=== PATIENT | female | born 1940 | race Caucasian/White ===

== ENCOUNTER 2019-02-07 20:33 | Inpatient (IN) | payer OTHER ==
[~2019-02-07] VITALS: Ht 152.4 cm; Wt 81.4 kg
--- NOTE | ~2019-02-07 | HC ---
[facility] [place] [address] CONSULTATION Name: THALIA DANIELS Room #: 436-P [facility] IN M.R.#: [id number] Admission: 02/07/19 ������������������ Attend Phys: Ricardo Laureano MD Discharge: 02/11/19 ������������������ Date of : 36 Report #: [id number] THIS REPORT FOR: //name// CC: Ricardo PATEL Physician staff DATE OF SERVICE: 02/11/2019 HISTORY OF PRESENT ILLNESS: The patient is an 78-year-old female who was admitted to [facility] with episode of acute mental status change. She had a fall approximately 9 days ago, was diagnosed with urinary tract infection at an outside hospital. She had worsening mental status and warranted admission for further evaluation. She was noted to be hyponatremic with a sodium down to 125 as well as acute renal insufficiency with creatinine up to 2.3 at hypomagnesemia, had some diarrhea, and was noted to have gait ataxia. She was diagnosed with metabolic encephalopathy. CT of the head showed ventriculomegaly and along with a history of some urinary incontinence and premorbid memory issues. She is thought to likely have normal pressure hydrocephalus. Neurology has been involved and the plan is to clear her infection first, have try to improve with strength, gait balance and hopeful further improvement as far as the metabolic encephalopathy. She is then to be reevaluated in the Neurology clinic to see if there should be further consideration for intervention for likely normal pressure hydrocephalus. We are seeing her in rehabilitation medicine consultation. PAST MEDICAL HISTORY: Includes chronic kidney disease, diabetes mellitus, kidney issues, depression, UTI. MEDICATIONS: Please see the full medication listing. HABITS: No history of alcohol or tobacco abuse. ALLERGIES: SHE DOES HAVE MULTIPLE ALLERGIES, PLEASE SEE THE LIST. SOCIAL HISTORY: Lives in a house alone, single ofelia. She indicates she did use a front-wheeled walker. Family assisted with laundry, which was in the basement. There is an involved granddaughter and the plan is to live with the patient's son once the patient is further improved with her overall function. REVIEW OF SYSTEMS: No current complaints of chest pain, shortness of breath or abdominal discomfort. PHYSICAL EXAMINATION: GENERAL: She is an 78-year-old white female in no obvious distress. VITAL SIGNS: Last recorded temperature 97.6, pulse 77, respirations 20, blood [address] [address] CONSULTATION Name: THALIA DANIELS Room #: 436-P [facility] IN M.R.#: [id number] Admission: 02/07/19 ������������������ Attend Phys: Ricardo Laureano MD Discharge: 02/11/19 ������������������ Date of : 38 Report #: [id number] pressure 153/73. The patient is alert. HEAD, EYES, EARS, NOSE, AND THROAT: Appeared to be benign. She will follow basic 1-step commands, although there is a definite latency to her responses. Facies appeared to be symmetric. EXTREMITIES: She has functional range of motion of both upper and lower extremities. Strength is grade 3+ to 4-/5. DTRs are trace to 1. She is mod assist with basic transfers, sit to stand. Gait was 5 steps mod assist with a front-wheeled walker. Lower extremity dressing has been mod assist. Gait is noted to be ataxic. ASSESSMENT: An 78-year-old white female with the following problem list: 1. Metabolic encephalopathy. 2. 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 3. Functional mobility, ADLs and cognitive communication issues. 4. Hyponatremia. 5. Acute on chronic renal failure. 6. Hypomagnesemia. 7. Lactic acidosis. 8. Recent urinary tract infection. 9. Diabetes mellitus. 10. History of depression. PLAN: The patient is a candidate for an acute [address] [place] [address] inpatient rehabilitation stay. Goals to improve her functional mobility, ADLs as well as cognitive communication issues, so we can hopefully get her back into the home setting. The current plan is to treat the infection and have her be reevaluated in the Neurology clinic as an outpatient regarding likely normal pressure hydrocephalus. We will need to see how she does as far as her therapies and functional improvements. Can plan on transfer when medically cleared. Thank you for asking us to assist in this patient's care. . ��������������������������������������������� ���������������������������������������� By: ��������������������������������������������� [id number] Adam Dang MD /DARRICK
[~2019-02-07 20:33] MED LIST: AUGMENTIN 500-1 EACH PO
[2019-02-07 22:02] LABS: ABSOLUTE NEUTROPHILS 9.7 thou/uL (1.4-8.2); BASOPHILS 0.3 % (0.0-2.0); EOSINOPHILS 1.3 % (0.0-3.0); HEMATOCRIT 35.7 % (37.0-47.0); HEMOGLOBIN 11.5 gm/dL (12.0-15.0); LYMPHOCYTES 10.2 % (24.0-44.0); MCH 26.8 pg (26.0-34.0); MCHC 32.1 g/dL (28.0-37.0); MCV 83.5 fL (80.0-100.0); MONOCYTES 5.6 % (1.0-8.0); PLATELET COUNT 412 thou/uL (150-400); POLYS 82.6 % (36.0-66.0); RBC 4.28 mil/uL (4.20-5.00); RDW 25.8 % (10.5-14.5); WBC 11.8 thou/uL (4.0-11.0)
[2019-02-07 22:24] LABS: ANION GAP 14 mmol/L (7-16); BUN 27 mg/dL (7-18); CALCIUM 8.9 mg/dL (8.5-10.1); CHLORIDE 91 mmol/L (98-107); CO2 20 mmol/L (21-32); CREATININE 2.3 mg/dL (0.6-1.0); GLUCOSE 124 mg/dL (74-106); POTASSIUM 5.2 mmol/L (3.5-5.1); SODIUM 125 mmol/L (136-145)
[2019-02-07 22:32] LABS: ALBUMIN 2.7 g/dL (3.4-5.0); MAGNESIUM 1.4 mg/dL (1.8-2.4); SGOT 59 U/L (15-37); SGPT 27 U/L (30-65); TOTAL BILIRUBIN 0.3 mg/dL (<0.1-1.0); TOTAL PROTEIN 6.6 g/dL (6.4-8.2); TROPONIN-I <0.06 ng/mL (<0.06)
[2019-02-07 22:52] LABS: URINE BILIRUBIN NEGATIVE (Negative); URINE BLOOD NEGATIVE (Negative); URINE CLARITY CLEAR; URINE COLOR YELLOW; URINE GLUCOSE-RANDOM* NEGATIVE (Negative); URINE KETONES NEGATIVE (Negative); URINE LEUKOCYTES-REFLEX NEGATIVE (Negative); URINE NITRITE-REFLEX NEGATIVE (Negative); URINE PROTEIN (DIPSTICK) NEGATIVE (Negative); URINE SPECIFIC GRAVITY 1.015 (1.005-1.035); URINE UROBILINOGEN 0.2 E.U./dl (0.2-1.0)
[2019-02-07 23:33] VITALS: BP 127/53
[2019-02-07 23:34] VITALS: BP 127/53
[2019-02-08 00:05] VITALS: BP 122/62
[2019-02-08] MEDS ORDERED: JANUMET 50-5001 EACH PO (00:30)
[2019-02-08] MEDS ORDERED: LEXAPRO 10 MG T10 M1 PO (00:32)
[2019-02-08] MEDS ORDERED: XANAX 0.25 MG0.25 MG PO (00:39)
[2019-02-08] MEDS ORDERED: LISINOPRIL20 MG PO (01:03)
[2019-02-08] MEDS ORDERED: METOPROLOL SUCC50 MG PO (01:06)
[2019-02-08] MEDS ORDERED: ASPIR 8181 MG PO (01:06)
[2019-02-08] MEDS ORDERED: PROBIOTIC1 EAC1 PO (01:07)
[2019-02-08] MEDS ORDERED: PRILOSEC OTC20 MG PO (01:07)
[2019-02-08] MEDS ORDERED: LIPITOR40 MG PO (01:08)
[2019-02-08] MEDS ORDERED: LOPERAMIDE 2 MG2 M1 PO (01:15)
[2019-02-08 04:00] VITALS: BP 149/70
[2019-02-08 05:52] LABS: CALCIUM 8.5 mg/dL (8.5-10.1); CREATININE 1.6 mg/dL (0.6-1.0); POTASSIUM 4.9 mmol/L (3.5-5.1)
--- NOTE | 2019-02-08 06:30 | NUR ---
PT ARRIVED TO UNIT APPROX 0015, ADMISSION AND ASSESSMENT COMPLETED, CONSENTS SIGNED BY GRANDDAUGHTER. PT ALERT TO HERSELF AND KNEW SHE WAS IN THE HOSPITAL, FLAT AFFECT AND VERY SLOW TO ANSWER QUESTIONS. DENIES SOB, PAIN, OR NAUSEA. IV FLUIDS AND ABX INFUSING OVERNIGHT. SKIN INTACT EXCEPT EXCORIATION IN PERIAREA. IN ISOLATION FOR POSSIBLE C.DIFF; NEED STOOL SAMPLE COLLECTED. HAS BEEN SB-SR, HR 58-65 MOST OF THE NIGHT. NO OTHER CONCERNS, WILL CONTINUE TO MONITOR.
[2019-02-08 07:47] VITALS: BP 153/74
--- NOTE | 2019-02-08 08:06 | EKG ---
[address] [place] [address] ELECTROCARDIOGRAM REPORT Name: THALIA DANIELS Room #: 352-P ADM IN M.R.#: [id number] ������������������ Admission: 02/07/19 ������������������ Attend Phys: Ricardo Laureano MD Discharge: ������������������ Date of : 38 Report #: [id number] ����������������������������������������������������������������� [id number] THIS REPORT FOR: //name// [facility] ED Test Date: 2019-02-07 Test Time: 21:02:13 Pat Name: THALIA DANIELS Department: Room: [facility] Gender: F Boat Outboard Engine Mechanic: YAJAIRA : 1940 Requested By: Moreno Rhodes Order Number: [id number] MD: Bruce Santos Measurements Intervals [place] Rate: 63 P: -9 NM: 143 QRS: 2 QRSD: 97 T: 85 QT: 464 QTc: 476 Interpretive Statements Sinus rhythm Atrial premature complex Nonspecific T abnrm, anterolateral leads No previous ECG available for comparison Electronically Signed On 02-08-2019 8:06:34 CDT by Bruce Santos [email or web address] ��������������������������������������������� <ELECTRONICALLY SIGNED> ���������������������������������������� By: Bruce Santos MD ��������������������������������������������� 02/08/19 0806 01 01 Bruce Santos MD /RUTHIE
[2019-02-08 09:03] LABS: HEMATOCRIT 35.8 % (37.0-47.0); HEMOGLOBIN 11.5 gm/dL (12.0-15.0); MCH 27.3 pg (26.0-34.0); MCV 85.1 fL (80.0-100.0); PLATELET COUNT 354 thou/uL (150-400); RBC 4.21 mil/uL (4.20-5.00); RDW 25.5 % (10.5-14.5); WBC 10.5 thou/uL (4.0-11.0)
[2019-02-08 09:32] LABS: ABSOLUTE NEUTROPHILS 8.6 thou/uL (1.4-8.2)
[2019-02-08 09:33] LABS: ANISOCYTOSIS 2+; BURR CELLS 1+
[2019-02-08 12:08] VITALS: BP 115/59
--- NOTE | 2019-02-08 12:12 | NUR ---
VASCULAR ACCESS CONULTED HAD DIFFICULTY WITH LAB AND PIV'S, DISCUSSED MIDLINE WITH GRANDDAUGHTER, VERBAL CONSENT OBTAINED. ATTEMPTED BATSHEVA ML DUE TO ROATOR CUFF INJURY ON RIGHT ARM. UNABLE TO PASS GUIDEWIRE. BATSHEVA CEPHALIC TOO SMALL FOR MIDLINE BUT ABLE TO START PIV.
--- NOTE | 2019-02-08 12:16 | NUR ---
assessment: CM REVIEWED CHART AND MET WITH PATIENT AND HER GRANDDAUGHTER HOLLIS AT THE BEDSIDE. PT WAS ADMITTED WITH ELECTROLYTE DISTURBANCE/DIARRHEA/ARF/AMS. PT WAS RECENTLY IN THE HOSPITAL AND WENT TO [facility] AND WAS VERY UNHAPPY THERE. GRANDDAUGHTER REPORTS THEY WANT TO LOOK INTO GETTING HER TO ANOTHER SNF. PT WAS LIVING AT HOME PRIOR TO BEING HOSPITALIZED AND GOING TO THE SNF AND LIVED ALONE. PLANS ARE FOR PATIENT TO DISCHARGE FROM [facility] TO ANOTHER SNF AND THEN ONCE DONE WITH THAT MOVE IN WITH HER SON. CM PROVIDED PATIENT AND GRANDDAUGHTER WITH A SNF LIST AND LEFT CM CONTACT INFO ON THEIR IF THEY WOULD LIKE TO DISCUSS AND SEND OUT ANY REFERRALS. CM LEFT VM FOR PATIENTS SON LASHAUN (DPOA) AND ATTEMPTED TO LEAVE A VM FOR OTHER DPOA (EDER) BUT VM WAS FULL. CM WILL CONTINUE TO FOLLOW TO ASSIST NEEDED. CM SPOKE WITH ATTENDING AND THERE ARE NO PLANS FOR WEEKEND DISCHARGE. CM WILL CONTINUE TO FOLLOW TO ASSIST NEEDED.
--- NOTE | 2019-02-08 16:23 | NUR ---
Assumed care approx. 0700 this AM. Patient oriented to self and knows that she is in the hospital, but can't remember which one. Patient has had a couple small, loose BM's, CDIFF sample negative; IV flagyl and vanc dc'd. Patient up to chair with PT using a walker. Skin is intact but groin and buttocks extremely red and excoriated. Patient also moist between folds of kelly area; nystatin powder ordered and applied. Fall precautions in place. Patient's granddaughter Nury updated at bedside this morning. Patient slowly progressing toward plan of care at this time.
[2019-02-08 17:01] VITALS: BP 170/76
[2019-02-08 19:33] VITALS: BP 149/68
--- NOTE | 2019-02-09 05:20 | NUR ---
ASSUMED CARE AT 1900. PT DENIES PAIN, EXCEPT IN PERIAREA WHEN CLEANED UP; Z-GUARD APPLIED TO AREA. DENIES NAUSEA OR SOB. PT ABLE TO STATE NAME AND BIRTHDAY, NEW WHICH HOSPITAL SHE WAS IN AND WHY SHE WAS HERE, BUT THOUGHT IT WAS APRIL 1993; PLEASANT AND COOPERATIVE WITH CARES BUT TENDS TO HAVE A BLANK STARE AND TAKE TIME WHEN ANSWERING QUESTIONS. ASKED FOR HELP USING BATHROOM MULTIPLE TIMES, PLACED ON BEDPAN BUT WOULD NOT GO MUCH THEN WOULD BE INCONTINENT RIGHT AFTER. SLEPT MOST OF THE NIGHT. NO OTHER CONCERNS, WILL CONTINUE TO MONITOR.
[2019-02-09 05:25] LABS: HEMATOCRIT 36.3 % (37.0-47.0); HEMOGLOBIN 11.7 gm/dL (12.0-15.0); MCH 27.2 pg (26.0-34.0); MCHC 32.2 g/dL (28.0-37.0); MCV 84.3 fL (80.0-100.0); RBC 4.3 mil/uL (4.20-5.00); RDW 25.2 % (10.5-14.5); WBC 8.1 thou/uL (4.0-11.0)
[2019-02-09 05:53] LABS: MAGNESIUM 1.8 mg/dL (1.8-2.4)
[2019-02-09 05:54] VITALS: BP 172/101
[2019-02-09 05:54] LABS: POTASSIUM 3.9 mmol/L (3.5-5.1)
[2019-02-09 07:51] VITALS: BP 169/98
[2019-02-09 11:07] VITALS: BP 174/86
[2019-02-09 14:55] VITALS: BP 112/59
[2019-02-09 15:15] VITALS: BP 129/70
--- NOTE | 2019-02-09 18:13 | NUR ---
ASSUME CARE FOR PT SHIFT CHANGE. ASSESSMENTS CHARTED. MEDS GIVEN PER MAR. A&OX3, FORGETFUL. NO C/O PAIN. REQUESTS BEDPAN, BUT IS FREQUENTLY INCONTINENT. USED ZGUARD ON REDNESS ON BUTTOCKS AND CHANGED CHUCKS AND LINENS FREQUENTLY. FAMILY VISITED IN AFTERNOON. WILL CONTINUE TO MONITOR AND FOLLOW POC.
[2019-02-09 19:35] VITALS: BP 149/78
[2019-02-10 03:55] VITALS: BP 175/88
[2019-02-10 07:53] VITALS: BP 194/105
[2019-02-10 09:51] LABS: HEMATOCRIT 32.9 % (37.0-47.0); HEMOGLOBIN 10.7 gm/dL (12.0-15.0); MCH 27.4 pg (26.0-34.0); MCHC 32.4 g/dL (28.0-37.0); MCV 84.6 fL (80.0-100.0); PLATELET COUNT 369 thou/uL (150-400); RBC 3.89 mil/uL (4.20-5.00); RDW 25.4 % (10.5-14.5); WBC 7.8 thou/uL (4.0-11.0)
[2019-02-10 10:00] LABS: CALCIUM 8.5 mg/dL (8.5-10.1); CREATININE 0.8 mg/dL (0.6-1.0); POTASSIUM 3.9 mmol/L (3.5-5.1)
[2019-02-10 10:14] LABS: ABSOLUTE NEUTROPHILS 5.4 thou/uL (1.4-8.2); ANISOCYTOSIS 1+; MICROCYTES 2+; PLATELET ESTIMATE NORMAL
[2019-02-10 11:19] VITALS: BP 170/98
[2019-02-10 15:14] VITALS: BP 135/72
--- NOTE | 2019-02-10 17:15 | NUR ---
ASSUMED PATIENT CARE AT 0700. A/O X2. NO DISDRESS NOTED. DENIES PAIN. ASSISTED TURN. INCONT URINE AND BOWEL. PROGRESSING TOWAEDS POC GOALS.
[2019-02-10 19:13] VITALS: BP 148/70
[2019-02-11 04:03] VITALS: BP 159/94
--- NOTE | 2019-02-11 06:16 | NUR ---
PLACED LOW LOSS AIR PUMP ON PT BED DUE TO POSSIBLE SKIN RISK. PT IS RESTLESS MOST OF NIGHT AND CALLS OUT FOR ANYONE. UP X1 WITH WALKER TO BSC. FOLLOW POC WITH IVF AND IVPB. HOURLY ROUNDING.
[2019-02-11 07:57] VITALS: BP 153/73
--- NOTE | 2019-02-11 09:58 | NUR ---
on-going assessment: CM SPOKE WITH [facility] WHO STATES PATIENT HAS A QUALIFYING DIAGNOSIS AND THEY COULD ASSESS PT TO SEE IF SHE COULD COME TO IF FAMILY AND PT WERE INTERESTED. CM SPOKE WITH PATIENT AND HER SON LASHAUN AT THE BEDSIDE. THEY ARE INTERESTED [id number] INTO . CONSULT WAS PLACED AND CM NOTIFIED REH[facility]. IF PATIENT IS UNABLE TO GO TO THEN FAMILY IS INTERESTED IN [facility]. CM WILL CONTINUE TO FOLLOW AND AWAITING ON INPUT FROM .
[2019-02-11 10:43] VITALS: BP 157/74
[2019-02-11] MEDS ORDERED: NORVASC10 MG PO (12:01)
[2019-02-11] MEDS ORDERED: NYAMYC15 GM TOP (12:01)
--- NOTE | 2019-02-11 17:28 | NUR ---
assumed patient care at 0700. a/o x2. no disdress noted. up with assisted to bsc. dc to 5n today.
== END 2019-02-11 14:42 | DRG 682 ==
LOC: ER 20:33 → 4S 23:02 → 3W 23:02 → EROBS 23:02 → 3W 23:47 → 4S 02-08 13:55
PROVIDERS: Emergency Medicine; Nurse Practitioner Family; ADMIT Hospitalist
DX: N17.9 Acute kidney failure, unspecified (principal); G93.41 Metabolic encephalopathy; E87.1 Hypo-osmolality and hyponatremia; N39.0 Urinary tract infection, site not specified; E83.42 Hypomagnesemia; K21.9 Gastro-esophageal reflux disease without esophagitis; F03.90 Unspecified dementia, unspecified severity, without behavioral disturbance, psychotic disturbance, mood disturbance, and anxiety; R32 Unspecified urinary incontinence; N18.9 Chronic kidney disease, unspecified; R26.0 Ataxic gait; R19.7 Diarrhea, unspecified; I12.9 Hypertensive chronic kidney disease with stage 1 through stage 4 chronic kidney disease, or unspecified chronic kidney disease; E11.22 Type 2 diabetes mellitus with diabetic chronic kidney disease; F32.9 Major depressive disorder, single episode, unspecified; R29.6 Repeated falls; G93.89 Other specified disorders of brain; Z79.899 Other long term (current) drug therapy; Z88.6 Allergy status to analgesic agent; Z88.8 Allergy status to other drugs, medicaments and biological substances; Z88.0 Allergy status to penicillin; Z91.013 Allergy to seafood; Z79.82 Long term (current) use of aspirin
CPT/HCPCS: 10100; 10879

== ENCOUNTER 2019-02-11 13:21 | Inpatient (IN) | payer OTHER ==
[~2019-02-11] VITALS: Ht 154.9 cm; Wt 84.4 kg
[~2019-02-11 13:21] MED LIST changes: +ASPIR 8181 MG PO; +JANUMET 50-5001 EACH PO; +LEXAPRO 10 MG T10 M1 PO; +LIPITOR40 MG PO; +LISINOPRIL20 MG PO; +LOPERAMIDE 2 MG2 M1 PO; +METOPROLOL SUCC50 MG PO; +NORVASC10 MG PO; +NYAMYC15 GM TOP; +PRILOSEC OTC20 MG PO; +PROBIOTIC1 EAC1 PO; +XANAX 0.25 MG0.25 MG PO
[2019-02-11 14:47] VITALS: BP 146/85
--- NOTE | 2019-02-11 15:40 | NUR ---
chart review. pt new to [facility]. cm visited with yeni at bedside. intro to dcp, transition of care, home health and team meetings. pt reported " lives alone, independent before hospital, 8 stairs to basement. manage own medication in pill box. have not driven since [place]. has cane, fww and walker with seat. has tube with tube chair- not built in. have life alert that works only at house and don't wear it. no past hh. was at [facility] before coming to hospital."/yeni. will cont following as needed for dc needs.
--- NOTE | 2019-02-11 18:41 | NUR ---
PT ADMITTED TO ROOM 509 THIS AFTERNOON DX WITH TOXIC METABOLIA ENCEPHALOPATHY, GAIT ATAXIA. HX OF HTN, CAD, HDL. AND CURRENT UTI. TX WITH PO ABT. VSS ON RA.PATIENT IS ALERT AND ORIENTED X4. LITTLE OF TOHONO [place] BUT ABLE TO VOICE HER NEEDS WITH ENCOURAGEMENT. REASSMENT PER CHART. SKIN INTACT, BRUISES ON BOTH ARM WITH PETECHIA AND LITTLE REDNESS ON BUTTOCK. APPLIED ZGUARD ORDERED. LOW AIR MATRESS IN PLACE. LUNGS ARE CLEAR AND DIMINISHED. ABD IS SOFT WITH BSX4. LAST BM WAS EARLIER THIS AM. PT HAS BEEN CONTINENT BLADDER. UP TO BSC WITH ASSIST. USES BSC 2X THIS EVENING. UP TO RECLINER AND ATE DINNER. BS 115 METFORMIN GIVEN. PT DENIES PAIN NOW. BUT OFTEN HAS PAIN WHEN STANDING UP. PT ALLERGIC TO TYLENOL. PT SAID SHE TAKES IBUPROFEN FOR PAIN. NOTIFIED CANDY THAT PT IS NEW ADMIT. SHE WILL COME TO SEE PT IN THE AM AND WILL ADD IBUPROFEN APPROPRIATE. ADMISSION MEDS LIST FAXED TO PHARMACY. PHYSICIAN CONSULTS WERE NOTIFIED. PLAN OT/PT/ST EARLAL IN AM. HAS SUPPORT FAMILY AND THEY WERE HERE. FALL AND SAFETY PROTOCOLS IN PLACE. WILL GIVE REPORT TO NIGHT NURSE TO CONTINUE TO MONITOR.
--- NOTE | 2019-02-12 05:16 | NUR ---
1909-Report given by day-shift nurse and care assumed. Kerry accu-check at HS = 123. She was med. compliant, slep off and on thru the nite. She was notably confused in the nite about what time it was and where she was, and was reoriented.
[2019-02-12 05:53] LABS: HEMATOCRIT 31.5 % (37.0-47.0); HEMOGLOBIN 10.4 gm/dL (12.0-15.0); MCH 27.8 pg (26.0-34.0); RBC 3.75 mil/uL (4.20-5.00); RDW 25.5 % (10.5-14.5); WBC 6.5 thou/uL (4.0-11.0)
[2019-02-12 06:08] LABS: CALCIUM 8.7 mg/dL (8.5-10.1); CREATININE 0.7 mg/dL (0.6-1.0); POTASSIUM 3.7 mmol/L (3.5-5.1)
[2019-02-12 07:26] VITALS: BP 153/90
--- NOTE | 2019-02-12 07:27 | NUR ---
ASSUME PT CARE AT 0700. REPORTS SLEPT FAIR. CALLED OUT FOR HELP THIS AM. INCONT B & B, ASSISTED TO BSC. HAS SOFT MODERATE BROWN GREEN BM IN THE COMMODE. REASSESSMENT PER CHART. NIGHT NURSE SAID PT WAS MORE CONFUSED AT NIGHT. ALERT AND ORIENTED X3, FORGETFUL, BUT COOPERATIVE THIS AM. C/O SORE PAIN ON RIGHT KNEE TO FEET, RATES PAIN 5/10, HAS NO PAIN AVAILABLE AT THIS MOMENT. DISCUSSED WITH CANDY THAT PT IS ALLERGIC TO TYLENOL. PT SAID SHE TAKES IBUBROFEN 2 TABLETS AT HOME. WILL CONTINUE TO FOLLOW UP AND OBTAIN PAIN MED FOR PT. OFFERED SUPPORTIVE CARE AND ENCOURAGEMENT. OT IS WORKING WITH PT NOW, HAS SORE AND REDNESS ON BOTTOM. CONTINUE TO APPLY ZGUARD ON. FALL PRECAUTION IN PLACE. CALL LIGHT WITHIN REACH. WILL CONTINUE TO MONITOR.
[2019-02-12 09:44] LABS: % SATURATION 26 % (20-39); IRON 55 ug/dL (50-170); TIBC 211 ug/dL (250-450)
[2019-02-12 10:12] LABS: FOLIC ACID 9.8 ng/mL (8.6-58.9)
--- NOTE | 2019-02-12 12:50 | NUR ---
team meeting, recommendation: re team, discuss with pt family after meeting.
[2019-02-12 19:13] VITALS: BP 134/62
--- NOTE | 2019-02-13 04:22 | NUR ---
ASSUMED CARE OF PT AT 1915. PT IS ALERT AND ORIENTED TO PERSON AND PLACE, VITAL SIGNS ARE STABLE. PT ASSISTED TO BED AT APPROXIMATELY 2100 AND UP FREQUENTLY UP TO THE BEDSIDE COMMODE. DENIES PAIN. Z-GUARD APPLIED TO THE COCCYX AND TURNED Q2H. FALL PRECAUTIONS IN PLACE AND NURSING WILL CONTINUE TO MONITOR.
[2019-02-13 08:10] VITALS: BP 135/68
[2019-02-13 19:00] VITALS: BP 150/75
--- NOTE | 2019-02-13 20:08 | NUR ---
PT ALERT AND ORIENTED TIMES FOUR. VSS. 97%RA. PT C/O PAIN PRN MEDICATIONS GIVEN WITH GOOD RELEIF. PT WORKED WELL WITH PT/OT THIS SHAIFT. PT TOLERATES MEDS AND MEALS. PT SLOWLY PROGRESSING TOWARDS POC GOALS.
--- NOTE | 2019-02-14 02:38 | NUR ---
RECEIVED REPORT FROM OFFGOING DAY SHIFT NURSE. ASSUMED CARE @ 19:30 ON 02/13/19. A&OX 3 CONFUSION NOTED. UP TO TOILET X2 ASSIST USING WALKER AND GAIT BELT. COOPERATED WITH ASSESSMENT, HRRR, LUNGS CTA, BOWEL SOUNDS NORMOACTIVE. WILL CONTINUE TO MONITOR, CALL LIGHT WITHIN REACH, BED IN LOW POSITION.
[2019-02-14 06:19] LABS: HEMOGLOBIN 9.7 gm/dL (12.0-15.0); MCH 26.9 pg (26.0-34.0); MCHC 32.2 g/dL (28.0-37.0); MCV 83.6 fL (80.0-100.0); PLATELET COUNT 373 thou/uL (150-400); RBC 3.58 mil/uL (4.20-5.00); WBC 7.3 thou/uL (4.0-11.0)
[2019-02-14 06:29] LABS: CALCIUM 8.3 mg/dL (8.5-10.1); CREATININE 0.8 mg/dL (0.6-1.0); POTASSIUM 3.4 mmol/L (3.5-5.1)
[2019-02-14 08:00] VITALS: BP 144/68
[2019-02-14 08:07] LABS: ABSOLUTE NEUTROPHILS 4.7 thou/uL (1.4-8.2); ANISOCYTOSIS 3+
--- NOTE | 2019-02-14 12:01 | NUR ---
ASSUMED CARES AT 0700. PT ORIENTED TO PERSON, PLACE AND SITUATION. FORGETFUL AND CONFUSED AT TIMES. C/O DOROTHY LE PAIN, PAIN MEDICATION ADMINISTERED ORDERED. VITALS REMAIN STABLE. SACRAL AREA CLEANED AND Z-GUARD APPLIED, NYSTATIN POWDER APPLIED TO AREA UNDER BREASTS ORDERED. PT CONTINUES TO HAVE BLE EDEMA, EXTREMITIES ELEVATED AND DEMAR HOSE IN PLACE. CONTINUES TO HAVE RED SPOTS/FARIAS ON BUE. PT UP WITH 1 MOD ASSIST, GB AND WALKER AND TOLERATED WELL. Q1H VISUAL CHECKS. LENNOX LIGHT WITHIN REACH. FALL PRECAUTIONS IN PLACE
[2019-02-14 19:24] VITALS: BP 118/48; BP 174/83
[2019-02-15 09:37] VITALS: BP 157/78
--- NOTE | 2019-02-15 16:41 | NUR ---
PT ALERT AND ORIENTED TIMES FOUR. VSS, 997%RA. PT DENIES PAIN/SOA. PT WORKED WELL WITH PT/OT. PT TOLERATES MEDS AND MEALS. FAMILY AT BEDSIDE. PT PROGRESSING TOWRADS POC GOALS.
[2019-02-15 21:15] VITALS: BP 127/44
--- NOTE | 2019-02-16 03:23 | NUR ---
ASSUMED CARES AT 1900. PT ORIENTED*4 BUT FORGETFUL. CALLING OUT FOR ASSISTANCE AND FORGETS TO USE CALL LIGHT. FORGETS WHY SHE CALLED. UP NUMEROUS TIMES TO VOID AND SOMETIMES REQUESTS BEDPAN, VOIDING 0-100CC AT A TIME. DENIES PAIN. UP WITH 1 MIN ASSIST GB AND WALKER. NYSTATIN POWDER APPLIED UNDER BREASTS DOROTHY, SITE HEALING WELL. Q1H VISUAL CHECK. CALL LIGHT WITHIN REACH. FALL PRECAUTION IN PLACE
[2019-02-16 05:33] LABS: ABSOLUTE NEUTROPHILS 4.6 thou/uL (1.4-8.2); BASOPHILS 0.8 % (0.0-2.0); EOSINOPHILS 2.5 % (0.0-3.0); HEMATOCRIT 32.1 % (37.0-47.0); HEMOGLOBIN 10.6 gm/dL (12.0-15.0); LYMPHOCYTES 27.5 % (24.0-44.0); MCH 27.5 pg (26.0-34.0); MCHC 32.9 g/dL (28.0-37.0); MCV 83.6 fL (80.0-100.0); MONOCYTES 8.1 % (1.0-8.0); PLATELET COUNT 396 thou/uL (150-400); POLYS 61.1 % (36.0-66.0); RBC 3.84 mil/uL (4.20-5.00); RDW 25.2 % (10.5-14.5); WBC 7.5 thou/uL (4.0-11.0)
[2019-02-16 05:52] LABS: CALCIUM 8.4 mg/dL (8.5-10.1); CREATININE 0.9 mg/dL (0.6-1.0); MAGNESIUM 1.2 mg/dL (1.8-2.4); POTASSIUM 4.1 mmol/L (3.5-5.1)
[2019-02-16 06:14] LABS: ANISOCYTOSIS 2+; MICROCYTES 2+; PLATELET ESTIMATE NORMAL; SCHISTOCYTES FEW
[2019-02-16 08:00] VITALS: BP 153/77
--- NOTE | 2019-02-16 16:32 | NUR ---
ASSUMED CARES AT 0700. REPORTS SLEPT GOOD LAST NIGHT. PT ORIENTED TO PERSON, PLACE AND SITUATION. FORGETFUL AND CONFUSED AT TIMES. C/O RIGHT KNEE PAIN RATES PAIN 6/10, VOLATRENE GEL PRN GIVEN. SHE SAID IT HELPS. VITALS REMAIN STABLE. SACRAL AREA CLEANED AND Z-GUARD APPLIED LOOKS BETTER. GROINS AND BREASTS ARE HEALED. NO REDNESS. OBTAIN ORDER FROM DR. VERNON TO CHANGE NYSTATIN POWDER TO PRN. PT CONTINUES TO HAVE BLE EDEMA 2+, EXTREMITIES ELEVATED AND DEMAR HOSE IN PLACE. CONTINUES TO HAVE RED SPOTS/FARIAS ON BUE. PT UP WITH 1 MOD ASSIST, GB AND WALKER AND TOLERATED WELL. Q1H VISUAL CHECKS. LENNOX LIGHT WITHIN REACH. FALL PRECAUTIONS IN PLACE. WILL CONTINUE TO MONITOR.
[2019-02-16 19:47] VITALS: BP 120/55
--- NOTE | 2019-02-17 05:56 | NUR ---
1899-Report received from day shift nurse and care assumed. Kerry c.o. bilateral lower calves pain, especially right calf, Voltaren gel applied and effective. DEMAR hose removed. A/O x4, bed side commode used. No c.o. loose stools. She slept well tonite.
[2019-02-17 08:00] VITALS: BP 140/67
--- NOTE | 2019-02-17 14:53 | NUR ---
ASSUMED CARE AT 0700, SHIFT ASSESSMENT DONE, MEDS GIVEN, VSS. DENIES PAIN, NAUSEA, VOMITING. UP TO THE CHAIR FOR MEALS. ACHS, NO COVERGE. ROOM AIR, WILL CONTINUE TO ASSESS AND ASSIST WITH ADLs NEEDED.
[2019-02-17 20:29] VITALS: BP 132/60
--- NOTE | 2019-02-18 01:52 | NUR ---
ASSUJED CARE FROM DAY SHIFT PT CHEERFUL HAVE NO CONERNS UP TO BSC FREQ VOIDING SMALL AMOUNT OF CLEAR YELLOW URINE, CREAM APPLIED TO LOWER LEG PRESCRIBED. RESTED WELL THROOUGHOUT HOURLY ROUNDS, WILL CONITNUE TO MONITOR FREQ.
[2019-02-18 07:30] VITALS: BP 146/64
--- NOTE | 2019-02-18 08:18 | NUR ---
I have reviewed the documentation by NELLI RUSS from 02/15/19 to 02/15/19 and I concur with it. MISHA DAO
--- NOTE | 2019-02-18 08:47 | NUR ---
ASSUMED CARES AT 0700. REPORTS WAS UP AND DOWN LAST NIGHT D/T FREQUENCY URINARY. BS THIS AM HAS 87CC AFTER VOID. ALERT AND ORIENTED X4, FORGETFUL AT TIME, SHE SAID HER MEMORY IS GETTING BETTER. DENIES RIGHT KNEE PAIN AT THIS MOMENT. VOLATRENE GEL HELPS. VITALS REMAIN STABLE ON RA. MORNING MEDS GIVEN. SACRAL AREA CLEANED AND Z-GUARD APPLIED LOOKS BETTER. PT CONTINUES TO HAVE BLE EDEMA 2+, EXTREMITIES ELEVATED AND DEMAR HOSE IN PLACE. CONTINUES TO HAVE RED SPOTS/FARIAS ON BUE. PT UP WITH 1 MOD ASSIST, GB AND WALKER AND TOLERATED WELL. DISCUSSED WITH PT ABOUT CARE PLAN AND ENCOURAGED PT TO BE UP IN RECLINER DURING DAY. Q1H VISUAL CHECKS. LENNOX LIGHT WITHIN REACH. FALL PRECAUTIONS IN PLACE. WILL CONTINUE TO MONITOR.
--- NOTE | 2019-02-18 15:10 | NUR ---
I have reviewed the documentation by NELLI RUSS from 02/18/19 to 02/18/19 and I concur with it. MISHA DAO, PT, DPT
[2019-02-18 18:42] LABS: URINE BILIRUBIN NEGATIVE (Negative); URINE BLOOD NEGATIVE (Negative); URINE CLARITY CLEAR; URINE COLOR YELLOW; URINE GLUCOSE-RANDOM* NEGATIVE (Negative); URINE KETONES NEGATIVE (Negative); URINE NITRITE-REFLEX NEGATIVE (Negative); URINE PROTEIN (DIPSTICK) NEGATIVE (Negative); URINE SPECIFIC GRAVITY <= 1.005 (1.005-1.035); URINE UROBILINOGEN 0.2 E.U./dl (0.2-1.0)
[2019-02-18 18:51] LABS: URINE LEUKOCYTES-REFLEX 1+ (Negative)
[2019-02-18 19:04] LABS: BACTERIA-REFLEX None Seen /HPF (None Seen); CASTS None Seen /LPF (None Seen); CRYSTALS None Seen /LPF (None Seen); SQUAMOUS 0-3 Few /LPF (0-3); URINE RBC None Seen /HPF (0-2); URINE WBC-REFLEX 6-15 Few /HPF (0-5); WBC CLUMPS Few (None Seen)
[2019-02-18 19:47] VITALS: BP 122/72
--- NOTE | 2019-02-19 05:25 | NUR ---
ASSUMED CARE OF PT AT 1900. A&Ox4, COOPERATIVE AND PLEASANT. VS WERE STABLE. SHE DENIED PAIN. UP TO BSC 8-10 x's OVER NOC WITH 25-50mL UOP PER A VOID. DENIED FEELING FULLNESS POST VOID. UA RESULTS RETURNED, CONTACTED PICTURE ENGRAVER, NEW MED ORDERS ADDED. PT ALSO TRIED MELATONIN LAST NOC AND STATED SHE FELT SHE SLEPT MUCH BETTER THAN PREVIOUS NOC WITH 4 HOURS SOLID SLEEP. DENIED RESPIRATORY DISTRESS. CALLED OUT APPROPRIATELY FOR ASSIST TO BSC. SLOWLY PROGRESSING TOWARDS POC GOALS.
--- NOTE | 2019-02-19 06:25 | HC ---
[facility] [place] [address] CONSULTATION Name: THALIA DANIELS Room #: 515-P ADM IN M.R.#: [id number] Admission: 02/11/19 Attend Phys: Adam Dang MD Discharge: Date of : 36 Report #: [id number] THIS REPORT FOR: //name// CC: Adam PATEL Physician staff DATE OF SERVICE: 02/17/2019 NEUROBEHAVIORAL STATUS EXAMINATION ATTENDING PHYSICIAN: Adam Dang MD WET ROASTER: Yuriy Galeano, PhD CLINICAL PRESENTATION: The patient is an 78-year-old female admitted to the [facility] following an episode of acute mental status changes. She had a fall approximately 9 days prior to her admission and was diagnosed with a urinary tract infection. The patient's mental status deteriorated further and hospitalization was recommended. She was diagnosed with a metabolic encephalopathy. A CT scan of her head showed ventriculomegaly along with a history of urinary incontinence and premorbid memory losses. The patient was considered as having normal pressure hydrocephalus. Her assessment on admission to rehab included metabolic encephalopathy, gait ataxia with likely normal pressure hydrocephalus, functional mobility, ADLs and cognitive communication issues, hyponatremia, acute on chronic renal failure, hypomagnesemia, lactic acidosis, recent urinary tract infection, diabetes mellitus and a history of depression. A complete description of her medical condition, history and medications can be found in her medical record. Neuropsychological consultation was requested to provide assistance in the assessment of cognitive and emotional status and to provide recommendations and services. Prior to this most recent admission, she was living independently. However, she reported plans following discharge to include moving in with her son. She is a high school graduate. 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 TECHNIQUES UTILIZED: Clinical interview, review of medical records, staff consultation and behavioral observation, mini mental status exam 2 standard versions and clock drawing, category fluency test. EXAMINATION FINDINGS: The patient was alert and cooperative with the assessment. However, she has poor insight into the severity of her symptoms and the extent of cognitive deficits. She reports her symptoms to include variable [facility] [address] [place] [address] CONSULTATION Name: THALIA DANIELS Room #: 515-P [facility] IN M.R.#: [id number] Admission: 02/11/19 Attend Phys: Adam Dang MD Discharge: Date of : 36 Report #: [id number] memory, decreased appetite, anxiety and depression. She does not report difficulty with sleep or word finding. Her primary concern is endurance and difficulty with walking. Performance on the MMSE 2 brief version was extremely low with a raw score of 9 of 16. She was 3/3 for initial registration, 3/5 for orientation to time, 3/[address] and 0/3 for immediate recall of 3 items after a brief time delay and distraction. Performance on the MMSE 2 standard version is extremely low with a raw score of 17 of 30, T score of 13 and percentile rank of less than 1. She was 0/5 for serial sevens, 2/2 for naming, 1/1 for repetition, 3/3 for auditory comprehension. She could read and follow single command and write a sentence. The patient was unable to copy a simple geometric design. The patient was unable to draw a clock and place the numbers within the clock or set the hand at a designated time. Difficulty with semantic memory and visual spatial construction is suggested. Category fluency estimate was extremely low with a T score of 22 and percentile rank of less than 1. The patient is presenting with severe deficits in neurocognitive functioning. Deficits included immediate recall, sustained attention and concentration, visual spatial construction and thought organization. DIAGNOSTIC IMPRESSION: Major neurocognitive disorder (dementia), unspecified, with decreased insight -- extent to be determined, moderate to severe currently. Unspecified depressive disorder. RECOMMENDATIONS: The patient will likely require 24-hour supervision. Indicated is assistance with the management of medication, finances and nutrition. Lack of insight into her deficits placed her at an increased safety risk. Speech therapy will be helpful for cognitive stimulation and development of compensatory strategies for attention/concentration, memory and executive functioning. Family education is necessary to ensure there were establishment of an adequate environment for her to maintain safety. Frequent orientation along with repetition will also benefit cognitive functioning. [address] [address] CONSULTATION Name: THALIA DANIELS Room #: 515-P [facility] IN M.R.#: [id number] Admission: 02/11/19 Attend Phys: Adam Dang MD Discharge: Date of : 36 Report #: [id number] Thank you very much for allowing me to provide the consultation on this patient. <ELECTRONICALLY SIGNED> By: Yuriy Galeano, PhD 02/19/19 0625 [id number] Yuriy Galeano, PhD /nt
[2019-02-19 08:00] VITALS: BP 96/46
--- NOTE | 2019-02-19 09:18 | NUR ---
ASSUMED CARES AT 0700. REPORTS SLEPT BETTER LAST NIGHT AFTER TAKINE MELATONIN. PT SAID SHE WANTS IT SCHEDULE BECAUSE SHE FORGETS TO ASK. PT HAS UTI, AND STARTS ON CIPRO TODAY. STOPS OXYBUTIN PER CANDY. B/P , HELD LISINOPRIL AND NORVASC, ENCOURAGED PT TO DRINK MORE. ALERT AND ORIENTED X4, FORGETFUL AT TIME. SHE SAID HER MEMORY IS GETTING BETTER. DENIES RIGHT KNEE PAIN AT THIS MOMENT. VOLATRENE GEL SCHEDULE HELPS. MORNING MEDS GIVEN. SACRAL AREA CLEANED AND Z-GUARD APPLIED LOOKS BETTER. PT CONTINUES TO HAVE BLE EDEMA 2+, EXTREMITIES ELEVATED AND DEMAR HOSE IN PLACE IN AM. CONTINUES TO HAVE RED SPOTS/FARIAS ON BUE. PT UP WITH 1 MOD ASSIST, GB AND WALKER AND TOLERATED WELL. DISCUSSED WITH PT ABOUT CARE PLAN AND ENCOURAGED PT TO BE UP IN RECLINER DURING DAY. Q1H VISUAL CHECKS. LENNOX LIGHT WITHIN REACH. FALL PRECAUTIONS IN PLACE. WILL CONTINUE TO MONITOR.
--- NOTE | 2019-02-19 13:59 | NUR ---
team meeting, recommendation: uti starting cipro new order today. re dorota, dean 02/27/19 hh ( pt, ot,st, bath aid, and nursing).
--- NOTE | 2019-02-19 14:47 | NUR ---
I have reviewed the documentation by NELLI RUSS from 02/19/19 to 02/19/19 and I concur with it. MISHA DAO, PT, DPT
[2019-02-19 19:50] VITALS: BP 140/51
--- NOTE | 2019-02-19 22:49 | NUR ---
ASSUMED CARE OF THE PT AT 1914 PM. ALERT ET ORIENTED X 3. MAKES NEEDS KNOWN. WALKS WITH A STEADY, SLOW GAIT. DENIES PAIN AT THIS TIME. GETS UP WITH A WALKER, GAIT BELT AND THE ASSISTANCE OF ONE TO GO TO THE BATHROOM. HEART RATE REGULAR, LUNGS CLEAR BILATERALLY. RESP., EVEN, AND UNLABORED. THE PT IS SLIGHTLY OBESE. CALL LIGHT WITHIN REACH.
[2019-02-20 05:49] LABS: HEMATOCRIT 28.9 % (37.0-47.0); HEMOGLOBIN 9.4 gm/dL (12.0-15.0); MCH 27.6 pg (26.0-34.0); MCHC 32.4 g/dL (28.0-37.0); MCV 85.2 fL (80.0-100.0); PLATELET COUNT 275 thou/uL (150-400); RDW 25.2 % (10.5-14.5); WBC 6.9 thou/uL (4.0-11.0)
[2019-02-20 05:59] LABS: CALCIUM 8.7 mg/dL (8.5-10.1); CREATININE 0.8 mg/dL (0.6-1.0); MAGNESIUM 1.4 mg/dL (1.8-2.4); POTASSIUM 4.7 mmol/L (3.5-5.1)
--- NOTE | 2019-02-20 06:44 | NUR ---
THE PT HAS BEEN UP AND DOWN ON THE BSC SEVERAL TIMES LAST NIGHT. CALL LIGHT WITHIN REACH.
[2019-02-20 08:15] VITALS: BP 123/56
[2019-02-20 08:54] LABS: ABSOLUTE NEUTROPHILS 4.3 thou/uL (1.4-8.2); ANISOCYTOSIS 1+; PLATELET ESTIMATE NORMAL
--- NOTE | 2019-02-20 10:50 | NUR ---
ASSUMED CARES AT 0700. PT AWAKE, ALERT AND ORIENTED*4. C/O RIGHT SHOULDER PAIN "I STRAINED MY SHOULDERS DURING ACTIVITY YERTERDAY"/CHANDU VÁSQUEZ GEL APPLIED AND PT VERBALISED RELIEF OF PAIN. VITALS REMAIN STABLE. PT CONTINUES TO HAVE BLE EDEMA, DEMAR HOSE IN PLACE AND EXTREMITIES ELEVATED WHEN AT REST. PT UP WITH 1 MIN ASSIST, GB AND WALKER AND TOLERATED WELL. Q1H VISUAL CHECKS. CALL LIGHT WITHIN REACH. FALL PRECAUTIONS IN PLACE
--- NOTE | 2019-02-20 14:40 | NUR ---
Patient participated in community reintegration on 02/20/19 with [facility]. Refer to documentation by SPEECH THERAPY.
--- NOTE | 2019-02-20 16:32 | NUR ---
I have reviewed the documentation by NELLI RUSS from 02/20/19 to 02/20/19 and I concur with it. MISHA DAO, PT, DPT
[2019-02-20 20:19] VITALS: BP 136/66
--- NOTE | 2019-02-21 02:47 | NUR ---
PATIENT ASSESSED AND IS ALERT X 4. SKIN WARM AND DRY. RESP EVEN AND UNLABORED. IS ALSO FORGETFUL AT TIMES. WANTING THE STAFF TO PULL HER PANTS DOWN AND PUT HER LEGS UP IN BED. STAFF INCOURGED TO DO FOR HERSELF. TAKING CIPRO FOR UTI. IS MINIMUM ASSIST WITH 1 PERSON WITH GAIT BELT AND WALKER. IBUPROFEN GIVEN FOR LEG PAIN. ALSO ONLY WANTED 1 MELATOIN FOR SLEEP. VOLTARIN GIVEN FOR LEG DISCONFORT. UP TO BATHROOM ABOUT Q 1 HOUR 1/2 TO BATHROOM. HAD A BM TODAY. SMALL AMOUNT OF EDEMA NOTED TO LOWER EXTREMITIES. ON ROOM AIR. CONT PLAN OF CARE.
--- NOTE | 2019-02-21 08:59 | NUR ---
Nutrition: Assessed d/t rehab LOS. Visited during breakfast. Pt here for gait ataxia, metabolic encephalopathy. Hx DM II, CKD, depression. On a carb controlled diet w/ requests for beef or pork only at meals. Pt is averaging 53% of meals over the last 5 days. [place] she does NOT like sausage either. Plan to add this to food preferences for kitchen staff and instead add on daily yogurt w/ AM meal. Pt also does well with eggs, milk for protein (both of which were on tray). BGs extremely well controlled, 88-126 mg/dl x 1 week. Recent BM 02/20; on BID Miralax. Receiving vitamin D and B12 supplementation as well as magnesium oxide (recent low Mag; 1.4 mg/dl on 02/20). Encouraged protein first at meals, emphasizing certain sides to save for last if satiety occurs. No new nutrition concerns/needs voiced. Low nutrition risk.
[2019-02-21 10:00] VITALS: BP 119/58
--- NOTE | 2019-02-21 11:16 | NUR ---
ASSUMED CARE AT 0700. PATIENT IS AWAKE AND ALERT. PATIENT DAVIS'S, CAR CHECKER ARE EQUAL. PATIENT LUNGS ARE CLEAR. ABD IS SOFT WITH BSX4. PATIENT IS ASSIST WITH 1 STAFF, GAIT BELT AND WALKER TO THE BATHROOM TO VOID MELLY COLORED URINE. PATIENT REMAINS ON CIPRO FOR UTI. FALL AND SAFETY PROTOCOLS IN PLACE. C/O PAIN IN HER KNEE. "O" REC'D FOR KNEE XRAY 3 VIEW. VOLTARIN GEL APPLIED TO THE RIGHT KNEE. CONTINUES TO PROGRESS SLOWLY TOWARDS D/C GOALS. WILL CONTINUE TO MONITER.
--- NOTE | 2019-02-21 15:38 | NUR ---
I have reviewed the documentation by NELLI Whitt from 02/21/19 to 02/21/19 and I concur with it. JAMILA SOFIA
[2019-02-21 19:40] VITALS: BP 132/49
--- NOTE | 2019-02-22 04:31 | NUR ---
ASSESSMENT: PT REMAIN ALERT AND ORIENT TIMES THREE. UP TO BSC WITH SBA. VSS, AFEBRILE. C/O RIGHT KNEE PAIN, DICLOFENAC GEL APPLIED WITH GOOD RELIEF. PT REQUESTED SLEEPING AID AND DID SLEEP FOR HALF OF THE NIGHT. GOOD PROGRESS TOWARDS DC GOALS. WILL CONTINUE TO MONITOR.
[2019-02-22 07:30] VITALS: BP 126/81
--- NOTE | 2019-02-22 14:53 | NUR ---
ASSUMED CARES AT 0700. PT AWAKE, ALERT AND ORIENTED*4, FORGETFUL. C/O PAIN RLE WITH ACTIVITY. VITALS REMAIN STABLE. SKIN REMAINS DRY AND INTACT. PT UP TO THE BATHROOM Q2H. UP WITH 1 MIN ASSIST, GB AND WALKER AND TOLERATED WELL. PARTICIPATED IN ALL THERAPIES. RESTING AFTER THERAPY. Q1H VISUAL CHECKS. CALL LIGHT WITHIN REACH. FALL PRECAUTIONS IN PLACE
--- NOTE | 2019-02-22 16:32 | NUR ---
I have reviewed the documentation by NELLI Whitt from 02/22/19 to 02/22/19 and I concur with it. JAMILA SOFIA
--- NOTE | 2019-02-22 16:37 | NUR ---
I have reviewed the documentation by NELLI Whitt from 02/22/19 to 02/22/19 and I concur with it. JAMILA SOFIA
[2019-02-22 20:15] VITALS: BP 141/60
--- NOTE | 2019-02-22 23:55 | NUR ---
ASSUMED PT CARE AROUND 190. A&OX4, FORGETFUL. C/O BILAT KNEE PAIN. VOLTAREN GEL APPLIED TO BILAT KNEES. UP W/ ASSIST AND WALKER TO BTR. PT HAS BEEN TO BTR MULTIPLE TIMES ALREADY TONIGHT. TOLERATED WELL. PT RESTING QUIETLY IN BED AT THIS TIME. REPORT GIVEN TO ONCOMING NURSE AROUND 2329.
--- NOTE | 2019-02-23 06:05 | NUR ---
ASSUME CARE 2300. PT RESTING WELL WITH NO DISTRESS NOTED. PT DENIES ANY PAIN. A/O X 4. CALLS APPROPRIATELY FOR NEEDS. ASSESSMENT CHARTED. PROGRESSING WELL WITH POC. VOIDING ADEQUATELY. PLAN IS TO CONTINUE MONITORING INFECTION AND LOC. POSSIBLE DISCHARGE NEXT WEEK .
[2019-02-23 08:00] VITALS: BP 127/60
--- NOTE | 2019-02-23 14:54 | NUR ---
ASSUMED CARES AT 0700. PT AWAKE, ALERT AND ORIENTED*4 BUT FORGETFUL. C/O RLE PAIN WITH MOVEMEMENT, VOLTAREN GEL APPLIED. ALL VITALS REMAIN STABLE. PT UP FOR ALL MEALS AND ATE >75%. UP TO THE BATHROOM MULTIPLE TIMES TO URINATE, URINE REMAINS YELLOW, CLEAR AND NO FOUL ODOR. UP WITH 1 MIN ASSIST, GB AND WALKER AND TOLERATED WELL. Q1H VISUAL CHECKS. CALL LIGHT WITHIN REACH. FALL PRECAUTIONS IN PLACE
[2019-02-23 20:44] VITALS: BP 116/48
[2019-02-24 05:21] LABS: HEMATOCRIT 29.5 % (37.0-47.0); HEMOGLOBIN 9.5 gm/dL (12.0-15.0); MCH 27.4 pg (26.0-34.0); MCHC 32.3 g/dL (28.0-37.0); MCV 84.8 fL (80.0-100.0); RBC 3.47 mil/uL (4.20-5.00); RDW 24.5 % (10.5-14.5); WBC 5.7 thou/uL (4.0-11.0)
[2019-02-24 05:29] LABS: CALCIUM 8.7 mg/dL (8.5-10.1)
[2019-02-24 07:30] VITALS: BP 139/75
--- NOTE | 2019-02-24 07:49 | NUR ---
PROGRESS PT A/O X 4 UP ALL NIGHT VOIDED APPROXIMATELY 10 TIMES STATED SHE ONLY SLEPT FOR 2 HOURS URINE IS CLEAR AND NOT FOUL SMELLING. SKIN C/D/I PERICARE DONE BY SELF CARE, UP WITH 1 GB AND WALKER GAIT STEADY. VSS CONTINUE POC.
--- NOTE | 2019-02-24 11:03 | NUR ---
ASSUMED CARE OF PT AT 0715. PT IS A&OX4, FORGETFUL, VITAL SIGNS ARE STABLE. ACCU CHECKS BID AND MANAGED WITH PO MEDICAITONS. PT UP TO BATHROOM APPROXIMATELY EVERY HOUR TO URINATE. DENIES PAIN AT THIS TIME AND IS PARTICIPATING IN THERAPIES, AMBULATED 150' WITH NURSING STAFF ON UNIT. FALL PRECAUTIONS IN PLACE AND NURSING WILL CONTINUE TO MONITOR.
[2019-02-24 20:10] VITALS: BP 123/58
--- NOTE | 2019-02-24 22:42 | NUR ---
PT ASSESSMENT DONE AND VSS. MED GIVEN AND WELL TOLERATED. FALL PRECAUTIONS IN PLACE. PT NEEDING TO URINATE FREQUENTLY. URINATING SMALL AMOUNTS PER TIME. PAIN AND SLEEPING MED GIVEN TO HELP SETTLE PT. WILL CONTINUE TO MONITOR.
--- NOTE | 2019-02-25 06:23 | NUR ---
ADDITIONAL NOTE ON PT-UP TO BS COMMODE 8 TIMES OVERNIGHT URINATING APPROX 50 ML PER TIME. PT STATED SHE SLEPT BETTER LAST NIGHT WITH SLEEPING MED.
[2019-02-25 07:59] VITALS: BP 145/68
--- NOTE | 2019-02-25 11:22 | NUR ---
ASSUMED CARE OF PT AT 0715. PT IS A&OX4, FORGETFUL, VITAL SIGNS ARE STABLE. PT CONTINUES TO VOID FREQUENTLY (APPROXIMATELY 1- 1 1/2 HOURS), PT STARTED ON OXYBUTYNIN. PT DENIES PAIN AND IS PARTICIPATING IN THERAPIES. REFUSES TO TAKE SHOWER. FALL PRECAUTIONS IN PLACE AND NURSING WILL CONTINUE TO MONITOR.
--- NOTE | 2019-02-25 18:15 | NUR ---
I have reviewed the documentation by NELLI RUSS from 02/25/19 to 02/25/19 and I concur with it. THANG ESQUIVEL
[2019-02-25 19:52] VITALS: BP 120/52
--- NOTE | 2019-02-25 21:57 | NUR ---
PT ASSESSMENT DONE AND VSS. MED GIVEN AND WELL TOLERATED. FALL PRECAUTIONS IN PLACE. SLEEPING. WILL CONTINUE TO MONITOR.
--- NOTE | 2019-02-26 07:56 | NUR ---
ASSUMED CARE AT 0700. PATIENT IS ALERT AND ORIENTED X4. DAVIS'S, INSURANCE MARKETING SPECIALIST ARE EQUAL. LUNGS ARE CLEAR. ABD IS SOFT WITH BSX4. UP WITH ASSIST OF 1 STAFF WITH GAIT BELT TO BATHROOM TO VOID MELLY COLORED URINE. FALL AND SAFETY PROTOCOLS IN PLACE. DENIES ANY PAIN. CONTINUES TO PROGRESS TOWARDS D/C GOALS. WILL CONTINUE TO MONITER.
--- NOTE | 2019-02-26 12:42 | NUR ---
team meeting, recommendation: 02/27/19 home with family, hh ( pt, ot, st, and nursing
--- NOTE | 2019-02-26 17:40 | NUR ---
I have reviewed the documentation by JAMES DURBIN from 02/26/19 to 02/26/19 and I concur with it. THANG ESQUIVEL
[2019-02-26 19:40] VITALS: BP 152/60
--- NOTE | 2019-02-27 04:02 | NUR ---
assumed care at approx 1900 evening 02/26. pt lying in bed with head of bed elevated at change of shift. pt alert and oriented x4, appropriate and cooperative. pt took hs meds with water tolerating well. pt up to bathroom to void several times this night. bed alarm on and call light in reach. will continue to monitor.
[2019-02-27 07:40] VITALS: BP 139/57
[2019-02-27] MEDS ORDERED: OXYBUTYNIN 5 MG5 M2 PO (09:33)
[2019-02-27] MEDS ORDERED: MELATONIN5 M1 PO (09:33)
[2019-02-27] MEDS ORDERED: VITAMIN D2000 UNIT PO (09:33)
[2019-02-27] MEDS ORDERED: LOPRESSOR25 PO (09:33)
[2019-02-27] MEDS ORDERED: LIPITOR40 MG PO (09:33)
[2019-02-27] MEDS ORDERED: MIRALAX17 GM PO (09:33)
[2019-02-27] MEDS ORDERED: VITAMIN B-12500 MCG PO (09:33)
[2019-02-27] MEDS ORDERED: MAGOX 400400 MG PO (09:33)
--- NOTE | 2019-02-27 09:38 | NUR ---
son don, left message wants to use [facility] for dc today.
--- NOTE | 2019-02-27 10:40 | NUR ---
ASSUMED CARES AT 0700. PT AWAKE, ALERT AND ORIENTED*4. DENIES PAIN. VITALS REMAIN STABLE. PT UP TO THE BATHROOM WITH 1 IN ASSIST, GB AND WALKER. URINE REMAINS LIGHT YELLOW AND CLEAR. PT TAKING A NAP AFTER BREAKFAST, SEEMS TO BE SLEEPING SOUNDLY. DC TEACHING AND PLAN TO BE COMPLETED WITH PT AND SON BEFORE DC. Q1H VISUAL CHECKS. CALL LIGHT WITHIN REACH. FALL PRECAUTIONS IN PLACE
[2019-02-27 11:48] VITALS: BP 139/57
[2019-02-27 12:06] VITALS: BP 139/57
--- NOTE | 2019-02-27 12:10 | NUR ---
DP sent referral to [facility], patient to hi today. DP will call [facility] to make certain they receive.
--- NOTE | 2019-02-28 10:59 | H ---
[facility] [place] [address] HISTORY AND PHYSICAL Name: THALIA DANIELS Room #: 515-P [facility] IN M.R.#: [id number] Admission: 02/11/19 Attend Phys: Adam Dang MD Discharge: 02/27/19 Date of : 36 Report #: [id number] THIS REPORT FOR: //name// CC: Adam PATEL Physician staff DATE OF SERVICE: 02/12/2019 HISTORY AND PHYSICAL/POSTADMISSION PHYSICIAN EVALUATION HISTORY OF PRESENT ILLNESS: The patient is an 78-year-old female who was originally admitted to [facility] on 02/07/2019 with an episode of acute mental status change. She had a fall approximately 9 days prior to her admission, was diagnosed with urinary tract infection at an outside hospital. She had worsening mental status, which warranted admission and further evaluation. She was noted to be hyponatremic with a sodium at 125 as well as acute renal insufficiency with a creatinine at 2.3, hypomagnesemia, some diarrhea, was noted to have Gait ataxia. She was diagnosed with metabolic encephalopathy. CT of the head showed ventriculomegaly along with a history of some urinary incontinence and premorbid memory issues. She was thought to likely have normal pressure hydrocephalus. Neurology has been involved and the plan is to treat her infection first, try to improve her strength, gait balance and hopeful further improvement as far as the metabolic encephalopathy. She is then to be reevaluated in the Neurology clinic to see if there should be further consideration for intervention for the likely normal pressure hydrocephalus. She was noted to have a significant functional decline from her premorbid level and has now been admitted for acute in-hospital inpatient rehabilitation. PAST MEDICAL HISTORY: Includes chronic kidney disease, diabetes mellitus, kidney issues, depression, and urinary tract infection. MEDICATIONS: Please see the full medication listing. HABITS: No history of alcohol or tobacco abuse. ALLERGIES: She does have multiple allergies with the list as noted. SOCIAL HISTORY: Lives in a house alone, single ofelia. She indicated that she did use a front-wheeled walker. Family assists with laundry, which was in the basement. There is an involved granddaughter and the plan is to live with the patient's son once the patient is further improved with her overall function. REVIEW OF SYSTEMS: No current complaints of chest pain, shortness of breath, abdominal discomfort. [address] [address] HISTORY AND PHYSICAL Name: THALIA DANIELS Room #: 515-P [facility] IN M.R.#: [id number] Admission: 02/11/19 Attend Phys: Adam Dang MD Discharge: 02/27/19 Date of : 36 Report #: [id number] PHYSICAL EXAMINATION: GENERAL: An 78-year-old white female in no obvious distress. VITAL SIGNS: Last recorded temperature 97.9, pulse 69, respirations 16, blood pressure 153/90. She is alert. HEENT: Appeared to be benign. Follows basic 1 step commands. There is a latency to her responses. Facies appeared symmetric. CHEST: Sounded clear to auscultation. CARDIOVASCULAR: Regular rate and rhythm. ABDOMEN: Bowel sounds positive, nontender. GENITOURINARY AND RECTAL: Deferred. EXTREMITIES: She has functional range of motion of both upper and lower extremities with strength grade 3+ to 4-/5. DTRs are trace to 1. She is mod assist with basic transfers, sit to stand. Gait was 5 steps mod assist with a front-wheeled walker. Lower extremity dressing was mod assist. She is noted to have an ataxic gait. She is being further evaluated by therapies here on rehabilitation. ASSESSMENT: An 78-year-old white female with the following problem list: 1. Metabolic encephalopathy. 2. 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 3. Functional mobility, ADLs and cognitive communication issues. 4. Hyponatremia. 5. Acute on chronic renal failure. 6. Hypomagnesemia. 7. Lactic acidosis. 8. Recent urinary tract infection. 9. Diabetes mellitus. 10. History of depression. PLAN: The patient is admitted for acute in-hospital inpatient rehabilitation. From a postadmission physician evaluation perspective, there are no relevant changes since the preadmission screening. Please see the above review of prior and current medical and functional conditions and comorbidities. Please see the patient's previous and current functional status. As far as the risk of complication, she does have the above noted multiple medical comorbidities. The Initial plan of care involves the interdisciplinary acute inpatient rehabilitation program with goal maximizing her functional independence, so she hopefully return back to her prior living situation. Prognosis is reasonably good with estimated length of stay probably at least 2 to 3 weeks. Potential barriers would include her multiple medical comorbidities and decreased functional status. The patient meets diagnostic criteria for an acute in-hospital inpatient rehabilitation stay. She meets the medical necessity criteria. She does have [address] [address] HISTORY AND PHYSICAL Name: THALIA DANIELS Room #: 515-P [facility] IN M.R.#: [id number] Admission: 02/11/19 Attend Phys: Adam Dang MD Discharge: 02/27/19 Date of : 36 Report #: [id number] the tolerance for therapies and has appropriate discharge goals back to the home setting. <ELECTRONICALLY SIGNED> By: Adam Dang MD 02/28/19 1059 [id number] Adam Dang MD /nt
--- NOTE | 2019-02-28 11:04 | PLAN ---
[facility] [place] [address] REHAB UNIT PLAN OF CARE Name: THALIA DANIELS Room #: 515-P [facility] IN M.R.#: [id number] Admission: 02/11/19 Attend Phys: Adam Dang MD Discharge: 02/27/19 Date of : 36 Report #: [id number] THIS REPORT FOR: //name// CC: Adam PATEL Physician staff DATE OF SERVICE: 02/13/2019 PROGRESS NOTE/OVERALL PLAN OF CARE SUBJECTIVE: The patient is seen back today in followup. She was in no distress. Last recorded temperature 98, pulse 75, respirations 20, blood pressure 134/62. Transfers are mod assist. Gait min assist 25 feet with a front-wheeled walker. In occupational therapy, lower body dressing is max assist. Speech therapy, she does have moderate cognitive deficits with decreased memory. ASSESSMENT: 1. Metabolic encephalopathy. 2. 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 3. Functional mobility, activities of daily living, and cognitive communication issues. 4. Hyponatremia. 5. Wcjqk-at-kxnfkaw renal failure. 6. Hypomagnesemia. 7. Lactic acidosis. 8. Recent urinary tract infection. 9. Diabetes mellitus. 10. History of depression. PLAN: The overall plan of care is based on the preadmission screen, post-admission physician evaluation and information garnered from therapy assessments. 1. Estimated length of stay is probably at least the next 10 days to 2 weeks, pending progress. 2. Medical prognosis is reasonably good. 3. Anticipated interventions includes the interdisciplinary acute inpatient rehabilitation program. 4. Anticipated functional outcomes would be for the patient to become modified independent utilizing the walker and improvement with cognition and basic ADLs that she can achieve a level that she can return back home with family assisting her. 5. Discharge destination apparently is to live with the patient's son, although this is going to have to be further clarified. 6. Expected therapy by discipline includes PT, OT and speech 1 hour per day [address] [address] REHAB UNIT PLAN OF CARE Name: THALIA DANIELS Room #: 515-P [facility] IN ..#: [id number] Admission: 02/11/19 Attend Phys: Adam Dang MD Discharge: 02/27/19 Date of : 36 Report #: [id number] each five days a week throughout the duration of the acute inpatient rehabilitation stay. <ELECTRONICALLY SIGNED> By: Adam Dang MD 02/28/19 1104 [id number] Adam Dang MD /nt
--- NOTE | 2019-03-01 11:50 | NUR ---
cm notified by commuter train operator and unite nurse heavy equipment sales manager that [facility] called wanting to know who pt pcp is, noted on face sheet dr florencio lin. cm provided information to [facility].
== END 2019-02-27 15:16 | disposition home health service (06) | DRG 71 ==
LOC: ENTRNSPT 02-27 15:09 → EDTRNSPTSTS 02-27 15:10
PROVIDERS: Hospitalist; Nurse Practitioner; ADMIT Physical Medicine & Rehabilitation
DX: G93.41 Metabolic encephalopathy (principal); E87.1 Hypo-osmolality and hyponatremia; N17.9 Acute kidney failure, unspecified; E87.2 Acidosis; E44.0 Moderate protein-calorie malnutrition; N39.0 Urinary tract infection, site not specified; G91.2 (Idiopathic) normal pressure hydrocephalus; R26.0 Ataxic gait; N18.9 Chronic kidney disease, unspecified; E83.42 Hypomagnesemia; E11.22 Type 2 diabetes mellitus with diabetic chronic kidney disease; F32.9 Major depressive disorder, single episode, unspecified; F01.50 Vascular dementia, unspecified severity, without behavioral disturbance, psychotic disturbance, mood disturbance, and anxiety; Z60.2 Problems related to living alone; Z91.013 Allergy to seafood; I12.9 Hypertensive chronic kidney disease with stage 1 through stage 4 chronic kidney disease, or unspecified chronic kidney disease; E78.5 Hyperlipidemia, unspecified; E53.8 Deficiency of other specified B group vitamins; E87.8 Other disorders of electrolyte and fluid balance, not elsewhere classified; R19.7 Diarrhea, unspecified; R35.0 Frequency of micturition; B96.5 Pseudomonas (aeruginosa) (mallei) (pseudomallei) as the cause of diseases classified elsewhere; Z87.440 Personal history of urinary (tract) infections; Z88.2 Allergy status to sulfonamides; Z88.6 Allergy status to analgesic agent; Z88.8 Allergy status to other drugs, medicaments and biological substances; Z79.899 Other long term (current) drug therapy; Z68.35 Body mass index [BMI] 35.0-35.9, adult; R39.15 Urgency of urination
CPT/HCPCS: 10112